=== PATIENT | male | born 1960 | race African-American/Black ===

== ENCOUNTER 2024-04-26 09:13 | Day surgery (SDC) | payer OTHER ==
[2024-04-26 11:48] VITALS: RESP 19; TEMP 97.9
[2024-04-26 11:50] VITALS: BP 116/66; PULSE 67
== END 2024-04-26 13:25 | disposition home or self-care (01) ==
LOC: FASU-ENDO 09:13
PROVIDERS: ATTEND Internal Medicine Gastroenterology
PROC: 0DBK8ZX Excision of Ascending Colon, Via Natural or Artificial Opening Endoscopic, Diagnostic (ICD-10-PCS; principal; 2024-04-26 11:12)
DX: Z12.11 Encounter for screening for malignant neoplasm of colon (principal); K63.89 Other specified diseases of intestine; K64.1 Second degree hemorrhoids; K64.8 Other hemorrhoids
CPT/HCPCS: 82962; 88305-TC